=== PATIENT | male | born 1965 | race Two or more races ===

== ENCOUNTER 2020-06-15 15:07 | Observation (INO) | payer OTHER ==
[~2020-06-15] VITALS: Ht 172.7 cm; Wt 72.6 kg
--- NOTE | 2020-06-15 15:59 | NUR ---
ED Nurse Note: PT ARRIVED WITH [facility] 245, FROM [facility]. PT C/O "SI" PT HAS NO PLAN AT THIS TIME. PT STATES THAT HE HAS LEFT LEG PAIN. PT REPOTS HE BROKE HIS LEG THE BEGINNING OF THE MONTH AND HAS A LEG BRACE ONE
[2020-06-15 16:02] VITALS: BP 105/58
[2020-06-15 16:51] LABS: BASOPHILS % (AUTO) 1.1 % (0.0-2.0); EOSINOPHILS % (AUTO) 2.3 % (0.0-3.0); HEMATOCRIT 35.8 % (42.0-52.0); HEMOGLOBIN 11.3 G/DL (14.2-18.0); LYMPHOCYTES % (AUTO) 30.9 % (20.0-45.0); MEAN CORPUSCULAR VOLUME 99 FL (80-99); MONOCYTES % (AUTO) 10.3 % (1.0-10.0); NEUTROPHILS % (AUTO) 55.4 % (45.0-75.0); PLATELET COUNT 106 K/UL (150-450); RED CELL DISTRIBUTION WIDTH 14.4 % (11.6-14.8); WHITE BLOOD COUNT 5.6 K/UL (4.8-10.8)
[2020-06-15 16:55] LABS: ANION GAP 10 mmol/L (5-15); BLOOD UREA NITROGEN 16 mg/dL (7-18); CALCIUM 8.7 MG/DL (8.5-10.1); CARBON DIOXIDE 29 MMOL/L (21-32); CHLORIDE 106 MMOL/L (98-107); CREATININE 0.8 MG/DL (0.55-1.30); POTASSIUM 4.3 MMOL/L (3.5-5.1); SODIUM 145 MMOL/L (136-145)
[2020-06-15 16:59] LABS: ALANINE AMINOTRANSFERASE 33 U/L (12-78); ALBUMIN 3.4 G/DL (3.4-5.0); ALBUMIN/GLOBULIN RATIO 1.1 (1.0-2.7); ALKALINE PHOSPHATASE 121 U/L (46-116); ASPARTATE AMINO TRANSFERASE 29 U/L (15-37); BILIRUBIN,TOTAL 0.6 MG/DL (0.2-1.0)
[2020-06-15 17:30] VITALS: BP 108/71
--- NOTE | 2020-06-15 18:00 | NUR ---
ED Nurse Note: ULTRA SOUND AT BEDSIDE
--- NOTE | 2020-06-15 18:28 | NUR ---
ED Nurse Note: Ultrasound left bedside
--- NOTE | 2020-06-15 18:34 | Emergency Room Report ---
History of Present Illness General Chief Complaint: Behavioral Complaint Present Illness HPI 55 YO male presents to the ED c/o increased pain in the left lower extremity x 1 week. Pt. recently recovering from left tibia fx and has undergone surgery and PT x 1 month. Pt. reports this pain is new onset, and wasn't there before. Pt. denies trauma or fall. He also reports significant increase in depression and is having thoughts of suicide. Pt. denies having a specific plan. He denies PSA's. Pt. reports he takes Wellbutrin and Lexapro which up until recently was managing his depression well. PT. reports he takes ASA daily. He reports having left leg immobilized for part of the day. He states he is still non-weight bearing. Pt. reports edema of the left lower extremity as well. Pt. with hx of liver cirrhosis, thrombocytopenia and dysphagia. Pt. denies illicit drug use. Pt. reports He is homeless and awaiting being able to receive housing assistance. Pt. reports numbness to the dorsum of the left foot which has been chronic since injury. Allergies: Coded Allergies: No Known Allergies (Unverified , 06/15/20) COVID-19 Screening Contact w/high risk pt: No Experienced COVID-19 symptoms?: No COVID-19 Testing performed MANAGER CUSTOMER: No Patient History Past Medical History: other - liver cirrhosis Past Surgical History: other - Left lower extremity orthopedic surgery for tibia fx. Pertinent Family History: none Reviewed Nursing Documentation: PMH: Agreed; PSxH: Agreed Nursing Documentation-PMH Hx Hypertension: Yes History Of Psychiatric Problem: Yes - depression Review of Systems All Other Systems: negative except mentioned in HPI Physical Exam Vital Signs Date Time Temp Pulse Resp B/P (MAP) Pulse Ox O2 Delivery O2 Flow Rate FiO2 06/15/20 15:52 98.2 60 16 105/58 (74) 98 Room Air Sp02 EP Interpretation: reviewed, normal General Appearance: no apparent distress, alert, GCS 15, non-toxic Head: normocephalic, atraumatic Eyes: bilateral eye normal inspection, bilateral eye PERRL ENT: hearing grossly normal, normal voice Neck: full range of motion Respiratory: chest non-tender, lungs clear, normal breath sounds, speaking full sentences Cardiovascular #1: regular rate, rhythm, edema - 2+ left LE Cardiovascular #2: 2+ dorsalis pedis (L) Gastrointestinal: normal bowel sounds, non tender, soft Musculoskeletal: tender - TTP anterior left landeros, there is swelling to the left foot and ankle up to about mid-calf, there are post-op wounds, there is hyperpigmentation of the left lower extremity. , swelling - left lower extremity Neurologic: alert, oriented x3, sensory intact, responsive, speech normal, other - paresthesia to the dorsum of the left foot. Psychiatric: judgement/insight normal, depressed affect - extremely tearful, and talkative Skin: other - Hyperpigmentation to the left lower extremity. Medical Decision Making PA Attestation Dr. Tirado is my supervising Physician whom patient management has been discussed with. Diagnostic Impression: Primary Impression: Intractable pain Additional Impression: Depression Qualified Codes: F32.2 - Major depressive disorder, single episode, severe without psychotic features ER Course 55 YO male presents to the ED c/o increased pain in the left lower extremity x 1 week. Pt. recently recovering from left tibia fx and has undergone surgery and PT x 1 month. Pt. reports this pain is new onset, and wasn't there before. Pt. denies trauma or fall. He also reports significant increase in depression and is having thoughts of suicide. Pt. denies having a specific plan. He denies PSA's. Pt. reports he takes Wellbutrin and Lexapro which up until recently was managing his depression well. PT. reports he takes ASA daily. He reports having left leg immobilized for part of the day. He states he is still non-weight bearing. Pt. reports edema of the left lower extremity as well. Pt. with hx of liver cirrhosis, thrombocytopenia and dysphagia. Pt. denies illicit drug use. Pt. reports He is homeless and awaiting being able to receive housing assistance. Pt. reports numbness to the dorsum of the left foot which has been chronic since injury. Pt is extremely tearful but is very talkative. Ddx considered but are not limited to DVT, Cellulitis, osteomyelitis , neuropathy,SI/HI, psychosis, UTI, intoxication Vital signs: are WNL, pt. is afebrile H&PE are most consistent with behavioral/mental health issue in addition to new onset of pain in a previously immobilized extremity. ORDERS: -CBC, CMP: unremarkable other than non-specific anemia -Salicylates and Acetaminophen - no acute intoxication. -Serum ETOH: WNL- no acute intoxication - UDS: Pending at time of sign out -UA: pending at time of sign out Venous duplex US of the left lower extremity. ED INTERVENTIONS: - MOrphine 4mg IV -Ativan 2 PO -- per Dr. Maldonado psychiatry SIgned out to attending : Dr. Tirado DISPOSITION: at this time pt. will be admitted to Dr. Vaughn for intractable pain and increased depression and psychosis. agreed to admit the pt. and to continue pt. care management. Labs Test 06/15/20 16:15 White Blood Count 5.6 K/UL (4.8-10.8) Red Blood Count 3.60 M/UL (4.70-6.10) Hemoglobin 11.3 G/DL (14.2-18.0) Hematocrit 35.8 % (42.0-52.0) Mean Corpuscular Volume 99 FL (80-99) Mean Corpuscular Hemoglobin 31.3 PG (27.0-31.0) Mean Corpuscular Hemoglobin Concent 31.5 G/DL (32.0-36.0) Red Cell Distribution Width 14.4 % (11.6-14.8) Platelet Count 106 K/UL (150-450) Mean Platelet Volume 9.4 FL (6.5-10.1) Neutrophils (%) (Auto) 55.4 % (45.0-75.0) Lymphocytes (%) (Auto) 30.9 % (20.0-45.0) Monocytes (%) (Auto) 10.3 % (1.0-10.0) Eosinophils (%) (Auto) 2.3 % (0.0-3.0) Basophils (%) (Auto) 1.1 % (0.0-2.0) Sodium Level 145 MMOL/L (136-145) Potassium Level 4.3 MMOL/L (3.5-5.1) Chloride Level 106 MMOL/L (98-107) Carbon Dioxide Level 29 MMOL/L (21-32) Anion Gap 10 mmol/L (5-15) Blood Urea Nitrogen 16 mg/dL (7-18) Creatinine 0.8 MG/DL (0.55-1.30) Estimat Glomerular Filtration Rate > 60 mL/min (>60) Glucose Level 92 MG/DL (74-106) Calcium Level 8.7 MG/DL (8.5-10.1) Total Bilirubin 0.6 MG/DL (0.2-1.0) Aspartate Amino Transf (AST/SGOT) 29 U/L (15-37) Alanine Aminotransferase (ALT/SGPT) 33 U/L (12-78) Alkaline Phosphatase 121 U/L (46-116) Total Protein 6.5 G/DL (6.4-8.2) Albumin 3.4 G/DL (3.4-5.0) Globulin 3.1 g/dL Albumin/Globulin Ratio 1.1 (1.0-2.7) Salicylates Level 1.4 ug/mL (2.8-20) Acetaminophen Level < 2 MCG/ML (10-30) Serum Alcohol < 3 mg/dL Other X-Ray Diagnostic Results Other X-Ray Diagnostic Results : X-Ray ordered: Left Tib/Fib # of Views/Limited Vs Complete: 3 View Indication: Pain EP Interpretation: Yes PA Xray: Interpretation reviewed, by supervising MD, and agrees with findings. Interpretation: no dislocation, no soft tissue swelling, no fractures Impression: Other - surgical hardware. Impression: Distracted fracture fragment and residual fracture line seen. Electronically Signed by: Kinza Velasquez PA-C CT/MRI/US Diagnostic Results CT/MRI/US Diagnostic Results : Imaging Test Ordered: Venous Duplex US Impression " negative for acute DVT". --Per official radiology report- Please see report for specific details. Last Vital Signs Date Time Temp Pulse Resp B/P (MAP) Pulse Ox O2 Delivery O2 Flow Rate FiO2 06/15/20 17:30 98.2 72 15 108/71 99 Room Air Disposition: ADMITTED INPATIENT Condition: Serious Signed Out To: Dr. Tirado Scripts Gabapentin (Neurontin) 300 Mg Capsule 300 MG ORAL THREE TIMES A DAY, #30 CAP Prov: Sean Woodruff M.D. 06/16/20 Lorazepam* (ATIVAN*) 1 Mg Tablet 1 MG ORAL Q4H PRN for 30 Days, TAB Prov: Sean Woodruff M.D. 06/16/20 Mirtazapine* (MIRTAZAPINE*) 15 Mg Tablet 7.5 MG ORAL BEDTIME for 30 Days, TAB Prov: Sean Woodruff M.D. 06/16/20 Escitalopram Oxalate* (LEXAPRO*) 10 Mg Tablet 20 MG ORAL DAILY for 30 Days, TAB Prov: Sean Woodruff M.D. 06/16/20 Buspirone Hcl* (BUSPIRONE HCL*) 5 Mg Tablet 5 MG ORAL THREE TIMES A DAY for 30 Days, TAB Prov: Sean Woodruff M.D. 06/16/20 Bupropion Hcl* (BUPROPION HCL SR*) 150 Mg Tablet.er 150 MG ORAL DAILY for 30 Days, #30 TAB Prov: Sean Woodruff M.D. 06/16/20 Referrals: Gela Vaughn MD (PCP) Kinza Velasquez Jun 15, 2020 18:34
--- NOTE | 2020-06-15 18:59 | NUR ---
ED Nurse Note: xray at bedside
[2020-06-15] MEDS ORDERED: Morphine Sulfate 4mg/ml Inj (IV USE ONLY) IVP ONE (19:00)
--- NOTE | 2020-06-15 19:03 | NUR ---
HAND-OFF: Report given to GREG Alves.
--- NOTE | 2020-06-15 19:05 | NUR ---
ED Nurse Note: Report received from GREG Ramirez. Pt is in room sitting in chair at this time. Pt has steady gait. Pt is aaox4. Pt is in no acute distress. RN monitoring pt and will continue to do so.
--- NOTE | 2020-06-15 19:30 | NUR ---
ED Nurse Note: ERMD bedside. Pt became agitated with ERMD and yelling at staff. Attempted to calm pt and reorient to situation. Pt stating "I am very depressed". Pt initially denied being transferred to [facility] and wants to stay at [facility]. Pt threatening ERMD. ERMD will place pt on medical hold.
[2020-06-15] MEDS ORDERED: LORazepam 1mg tab ORAL ONE (19:45)
[2020-06-15] MEDS ORDERED: 1/2 NS 1000ml IV ONE (19:59)
[2020-06-15 20:55] VITALS: BP 130/76
--- NOTE | 2020-06-15 21:00 | NUR ---
ED Nurse Note: Patient states he does not want to actively kill himself or harm others at this time and that he is very depressed and wants medical help for his leg. Pt has medical boot on L leg. Pt has fair impulse control at this time. Pt aware of admission to [facility]. Vital signs are stable. RN bedside. Will continue to monitor pt. Safety measures in place. Pt provided with blanket for comfort.
--- NOTE | 2020-06-15 21:30 | NUR ---
ED Nurse Note: Unable to obtain CRE/VRE/MRSA swabs. Pt refused at this time.
--- NOTE | 2020-06-15 21:55 | NUR ---
ED Nurse Note: Report given to GREG Munson.
--- NOTE | 2020-06-15 22:00 | NUR ---
ED Nurse Note: Pt is stable for transfer to [facility] unit at this time under observation per ERMD. Pt is aaox4, breathing is normal and unlabored. Pt is calm and not in any acute distress. Pt notes he feels better after receiving ativan PO. Pt taken to unit via wheelchair. Pt took all belongings. Pt own medications locked in ED pt own med box. IV is patent and intact. VSS.
[2020-06-15] MEDS ORDERED: HYDROmorphone 1mg/ml Carpuject IVP PRN (22:15)
[2020-06-15] MEDS ORDERED: Miralax 17gm pkt ORAL PRN (22:15)
[2020-06-15] MEDS ORDERED: LORazepam 1mg tab ORAL PRN (22:15)
[2020-06-15 22:20] VITALS: BP 121/64
--- NOTE | 2020-06-15 22:20 | NUR ---
NURSE NOTES: Patient arrived the unit with sitter. Patient is a/ox4 and c/o pain 8/10 on left leg and will give medication as ordered. No any distress noted at this time. Breathing is even and unlabored on RA. Belonging checked with patient; painter 200 dollars, 4 credit cards and signed by patient. IV site is intact and patent. Skin is intact except Lt leg surgical scars with st/st, edema, redness; patient stated that he had surgery on 05/12/20 for Fx. Bed is on alarm, locked, and lowest position. Call light within reach. Will continue to monitor.
--- NOTE | 2020-06-15 22:21 | History and Physical ---
History of Present Illness General Reason for Hospitalization: Behavioral Complaint Present Illness HPI This is a 55yo M who reported from his SNF which he has been undergoing rehabilitation after a mechanical fall suffering from L distal tib-fib fracture s/p ORIF 05/[address] Lindsey at [facility]. He has a past medical history for compensated etoh cirrhosis (not on diuretics but lactulose), thrombocytopenia, HTN and depression. He reports to the ED for worsening depression and anxiety. He told the ED staff he has suicidal thoughts. He has been more depressed at the SNF despite improvement in rehab. He currently in a left boot and ambulating >50ft. He has followed up with Dr Lindsey without any new concerns. He will see the inpatient Psychiatrist for re evaluation of depression. Allergies: Coded Allergies: No Known Allergies (Unverified , 06/15/20) COVID-19 Screening Contact w/high risk pt: No Experienced COVID-19 symptoms?: No Patient History Healthcare decision maker Resuscitation status Advanced Directive on File Review of Systems Psychiatric: Reports: prior hx, anxiety, depressed feelings, emotional problems Physical Exam General Appearance: WD/WN, no apparent distress Lines, tubes and drains: peripheral HEENT: normocephalic, atraumatic, anicteric, PERRL, EOMI Neck: non-tender, normal alignment Respiratory/Chest: chest wall non-tender, lungs clear, normal breath sounds, no respiratory distress Abdomen: normal bowel sounds, non tender, soft Extremities: normal range of motion, non-tender, no calf tenderness, normal capillary refill, non-pitting, no edema Skin Exam: normal pigmentation, warm/dry, cyanotic Neurologic: 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-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 grossly normal, alert, oriented x 3 Last 24 Hour Vital Signs Date Time Temp Pulse Resp B/P (MAP) Pulse Ox O2 Delivery O2 Flow Rate FiO2 06/15/20 20:55 98.6 55 16 130/76 97 Room Air 06/15/20 17:30 98.2 72 15 108/71 99 Room Air 06/15/20 16:02 60 16 Room Air 06/15/20 16:02 98.2 79 16 105/58 98 Room Air 06/15/20 15:52 98.2 60 16 105/58 (74) 98 Room Air Laboratory Tests Test 06/15/20 16:15 White Blood Count 5.6 K/UL (4.8-10.8) Red Blood Count 3.60 M/UL (4.70-6.10) L Hemoglobin 11.3 G/DL (14.2-18.0) L Hematocrit 35.8 % (42.0-52.0) L Mean Corpuscular Volume 99 FL (80-99) Mean Corpuscular Hemoglobin 31.3 PG (27.0-31.0) H Mean Corpuscular Hemoglobin Concent 31.5 G/DL (32.0-36.0) L Red Cell Distribution Width 14.4 % (11.6-14.8) Platelet Count 106 K/UL (150-450) L Mean Platelet Volume 9.4 FL (6.5-10.1) Neutrophils (%) (Auto) 55.4 % (45.0-75.0) Lymphocytes (%) (Auto) 30.9 % (20.0-45.0) Monocytes (%) (Auto) 10.3 % (1.0-10.0) H Eosinophils (%) (Auto) 2.3 % (0.0-3.0) Basophils (%) (Auto) 1.1 % (0.0-2.0) Sodium Level 145 MMOL/L (136-145) Potassium Level 4.3 MMOL/L (3.5-5.1) Chloride Level 106 MMOL/L (98-107) Carbon Dioxide Level 29 MMOL/L (21-32) Anion Gap 10 mmol/L (5-15) Blood Urea Nitrogen 16 mg/dL (7-18) Creatinine 0.8 MG/DL (0.55-1.30) Estimat Glomerular Filtration Rate > 60 mL/min (>60) Glucose Level 92 MG/DL (74-106) Calcium Level 8.7 MG/DL (8.5-10.1) Total Bilirubin 0.6 MG/DL (0.2-1.0) Aspartate Amino Transf (AST/SGOT) 29 U/L (15-37) Alanine Aminotransferase (ALT/SGPT) 33 U/L (12-78) Alkaline Phosphatase 121 U/L (46-116) H Total Protein 6.5 G/DL (6.4-8.2) Albumin 3.4 G/DL (3.4-5.0) Globulin 3.1 g/dL Albumin/Globulin Ratio 1.1 (1.0-2.7) Salicylates Level 1.4 ug/mL (2.8-20) L Acetaminophen Level < 2 MCG/ML (10-30) L Serum Alcohol < 3 mg/dL Height (Feet): 5 Height (Inches): 8.00 Weight (Pounds): 190 Medications Current Medications Medications (Trade) Dose Ordered Sig/Stan Route PRN Reason Start Time Stop Time Status Last Admin Dose Admin Escitalopram Oxalate (Lexapro) 10 mg DAILY ORAL 06/16/20 09:00 07/16/20 08:59 UNV Lorazepam (Ativan) 1 mg Q6H PRN ORAL For Anxiety 06/15/20 22:15 06/22/20 22:14 UNV Mirtazapine (Remeron) 7.5 mg BEDTIME ORAL 06/16/20 21:00 09/14/20 20:59 UNV Assessment/Plan Problem List: (1) Depression Assessment & Plan: Likely exacerbated by circumstances patient is currently in. + suicidal ideation His LLE is healing appropriately and patient should continue weaning of opiates as tolerated. As for further trauma or increase pain, he denies. ORDERS - Continue home medications, I reviewed with him - Insomnia prn trazodone - Resume pain prescription - Inpatient psych eval ICD Codes: F32.9 - Major depressive disorder, single episode, unspecified SNOMED: 49066568 Qualifiers: Qualified Codes: F32.2 - Major depressive disorder, single episode, severe without psychotic features Celso Eller D.O. Jun 15, 2020 22:20
[2020-06-15] MEDS ORDERED: Enoxaparin 40mg Inj SUBQ SCH (23:15)
[2020-06-16] VITALS: BP 136/73
--- NOTE | 2020-06-16 03:59 | Progress Note ---
DATE: 06/15/2020 The patient was admitted to the hospital due to increased pain in the left lower extremity for 1 week. I sent the patient to ER for evaluation. In the ER, the patient decompensated and the staff called me several times including the ER doctors. The patient started screaming and saying that he wants to kill himself and he is suicidal. He was agitated and complaining of severe pain. Therefore, he was transferred to medical floor. I also ordered medication for him. Leonid Maldonado M.D. DR: LUCY JOB#: [id number] CC:
[2020-06-16 04:00] VITALS: BP 112/68
[2020-06-16 05:39] LABS: BASOPHILS % (AUTO) 0.9 % (0.0-2.0); EOSINOPHILS % (AUTO) 3.6 % (0.0-3.0); HEMATOCRIT 35.5 % (42.0-52.0); HEMOGLOBIN 11.1 G/DL (14.2-18.0); LYMPHOCYTES % (AUTO) 35.4 % (20.0-45.0); MEAN CORPUSCULAR VOLUME 99 FL (80-99); MONOCYTES % (AUTO) 13.3 % (1.0-10.0); NEUTROPHILS % (AUTO) 46.9 % (45.0-75.0); PLATELET COUNT 110 K/UL (150-450); RED CELL DISTRIBUTION WIDTH 13.8 % (11.6-14.8); WHITE BLOOD COUNT 5.1 K/UL (4.8-10.8)
[2020-06-16 05:59] LABS: ANION GAP 3 mmol/L (5-15); BLOOD UREA NITROGEN 18 mg/dL (7-18); CALCIUM 8.7 MG/DL (8.5-10.1); CARBON DIOXIDE 35 MMOL/L (21-32); CHLORIDE 107 MMOL/L (98-107); POTASSIUM 3.6 MMOL/L (3.5-5.1); SODIUM 145 MMOL/L (136-145)
--- NOTE | 2020-06-16 07:40 | NUR ---
NURSE HAND-OFF: Important Events on Shift:[admission] Patient Status: [stable] Diet: [cardiac] Pending Orders: [none] Pending Results/Labs:[none] Pending MD notification:[none] Latest Vital Signs: Temperature 97.7 , Pulse 56 , B/P 112 /68 , Respiratory Rate 18 , O2 SAT 97 , Room Air, O2 Flow Rate . Vital Sign Comment: [stable] Latest Blanchard Fall Score: 30 Fall Risk: Medium Risk Safety Measures: Call light Within Reach, Bed Alarm Zone 2, Side Rails Side Rails x2, Bed position Low and Locked. Fall Precautions: Yellow Socks Door Sign Report given to [fermin rn].
--- NOTE | 2020-06-16 07:45 | NUR ---
NURSE NOTES: Received report from GREG Parrish. Patient asleep in bed in RA. Breathing even and unlabored. No acute distress notes. Sitter at beside. IV site is intact and patent running IVF as ordered. Bed is on alarm, locked, and lowest position. Call light within reach. Will continue to monitor.
[2020-06-16 08:00] VITALS: BP 127/66
[2020-06-16] MEDS: BuPROPion SR 150mg tab ORAL SCH (09:44)
[2020-06-16] MEDS: Docusate 100mg cap ORAL SCH ×2 (09:45→21:27)
[2020-06-16] MEDS: BusPIRone 5mg Tab ORAL SCH ×3 (09:48→17:23)
--- NOTE | 2020-06-16 11:54 | General Progress Note ---
Assessment/Plan Problem List: (1) Intractable pain ICD Codes: R52 - Pain, unspecified SNOMED: 10335259 (2) Depression ICD Codes: F32.9 - Major depressive disorder, single episode, unspecified SNOMED: 06403553 Qualifiers: Qualified Codes: F32.2 - Major depressive disorder, single episode, severe without psychotic features Status: stable Assessment/Plan: This is a 55yo M who reported from his SNF which he has been undergoing rehabilitation after a mechanical fall suffering from L distal tib-fib fracture s/p ORIF 05/[address] Lindsey at [facility]. He has a past medical history for compensated etoh cirrhosis (not on diuretics but lactulose), thrombocytopenia, HTN and depression. He reports to the ED for worsening depression and anxiety. #Depression with SI -Feels better today and no longer has SI per patient -Dr. Maldonado following -Medication management by psych #Left tib-fib Fracture -Miimal pain -PT/OT while in hopital -Pain control #HTN -Continue home meds #ETOH chirosis - compensated -CTM I spent 33 minutes with this patient with 18 min on care coordination and counseling. Discussed with Dr. Maldonado and RNs. Subjective Date patient seen: Jun 16, 2020 Time patient seen: 11:46 ROS Limited/Unobtainable: No Constitutional: Denies: chills, diaphoresis, fever, malaise, weakness HEENT: Denies: eye pain, blurred vision, tearing, double vision, ear discharge , nose pain Cardiovascular: Denies: chest pain, edema, irregular heart rate, lightheadedness, palpitations Respiratory: Denies: cough, shortness of breath, SOB with excertion, SOB at rest Gastrointestinal/Abdominal: Denies: abdomen distended, abdominal pain, black stools, tarry stools, blood in stool, constipated Genitourinary: Denies: discharge, frequency, flank pain, incontinence, pain Neurologic/Psychiatric: Reports: anxiety, depressed, emotional problems; Denies : headache, numbness, pre-existing deficit, tingling Endocrine: Denies: intolerance to cold, intolerance to heat, increased hunger, increased thirst, increased urine Allergies: Coded Allergies: No Known Allergies (Unverified , 06/15/20) Subjective He sates he no longer has SI. Feels better overall. Objective Last 24 Hour Vital Signs Date Time Temp Pulse Resp B/P (MAP) Pulse Ox O2 Delivery O2 Flow Rate FiO2 06/16/20 09:00 Room Air 06/16/20 08:00 97.8 59 18 127/66 (86) 98 06/16/20 04:00 97.7 56 18 112/68 (83) 97 06/16/20 00:00 98.0 51 18 136/73 (94) 99 06/15/20 23:40 Room Air 06/15/20 22:20 97.7 51 18 121/64 (83) 98 06/15/20 22:00 98.6 61 16 134/78 98 Room Air 06/15/20 20:55 98.6 55 16 130/76 97 Room Air 06/15/20 19:32 98.6 06/15/20 17:30 98.2 72 15 108/71 99 Room Air 06/15/20 16:02 60 16 Room Air 06/15/20 16:02 98.2 79 16 105/58 98 Room Air 06/15/20 15:52 98.2 60 16 105/58 (74) 98 Room Air Intake and Output 06/15/20 06/16/20 19:00 07:00 Intake Total 800 ml Output Total 1 ml Balance -1 ml 800 ml Intake Oral 300 ml IV Total 500 ml Output Urine Total 1 ml # Voids 2 Laboratory Tests 06/15/20 16:15: White Blood Count 5.6, Red Blood Count 3.60L, Hemoglobin 11.3L, Hematocrit 35.8L , Mean Corpuscular Volume 99, Mean Corpuscular Hemoglobin 31.3H, Mean Corpuscular Hemoglobin Concent 31.5L, Red Cell Distribution Width 14.4, Platelet Count 106L, Mean Platelet Volume 9.4, Neutrophils (%) (Auto) 55.4, Lymphocytes (%) (Auto) 30.9, Monocytes (%) (Auto) 10.3H, Eosinophils (%) (Auto) 2.3, Basophils (%) (Auto) 1.1, Sodium Level 145, Potassium Level 4.3, Chloride Level 106, Carbon Dioxide Level 29, Anion Gap 10, Blood Urea Nitrogen 16, Creatinine 0.8, Estimat Glomerular Filtration Rate > 60, Glucose Level 92, Calcium Level 8.7, Total Bilirubin 0.6, Aspartate Amino Transf (AST/SGOT) 29, Alanine Aminotransferase (ALT/SGPT) 33, Alkaline Phosphatase 121H, Total Protein 6.5, Albumin 3.4, Globulin 3.1, Albumin/Globulin Ratio 1.1, Salicylates Level 1.4L, Acetaminophen Level < 2L, Serum Alcohol < 3 06/16/20 05:00: White Blood Count 5.1, Red Blood Count 3.60L, Hemoglobin 11.1L, Hematocrit 35.5L , Mean Corpuscular Volume 99, Mean Corpuscular Hemoglobin 30.9, Mean Corpuscular Hemoglobin Concent 31.3L, Red Cell Distribution Width 13.8, Platelet Count 110L, Mean Platelet Volume 7.4, Neutrophils (%) (Auto) 46.9, Lymphocytes (%) (Auto) 35.4, Monocytes (%) (Auto) 13.3H, Eosinophils (%) (Auto) 3.6H, Basophils (%) (Auto) 0.9, Sodium Level 145, Potassium Level 3.6, Chloride Level 107, Carbon Dioxide Level 35H, Anion Gap 3L, Blood Urea Nitrogen 18, Creatinine 1.0, Estimat Glomerular Filtration Rate > 60, Glucose Level 89, Calcium Level 8.7 Height (Feet): 5 Height (Inches): 8.00 Weight (Pounds): 160 General Appearance: WD/WN, no apparent distress, alert, alert oriented x3 EENT: PERRL/EOMI, normal ENT inspection Neck: non-tender, normal alignment, supple Cardiovascular: normal peripheral pulses, normal rate, regular rhythm, no gallop/murmur, no JVD Respiratory/Chest: chest wall non-tender, lungs clear, normal breath sounds, no respiratory distress, no accessory muscle use Abdomen: normal bowel sounds, non tender, soft, no organomegaly, no mass Pelvis: normal external exam Extremities: other - pain for previous leg fracture Edema: no edema noted Arm (L), no edema noted Arm (R), no edema noted Leg (L), no edema noted Leg (R), no edema noted Pedal (L), no edema noted Pedal (R), no edema noted Generalized 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 Jun 16, 2020 11:54
[2020-06-16 12:00] VITALS: BP 123/69
--- NOTE | 2020-06-16 12:43 | NUR ---
WAITER/WAITRESS CABIN CLASS NOTE SW met w/ pt to assess social services counselor concern/needs. Pt has been staying at [facility] post-leg surgery. Pt was staying at [facility] over two weeks prior to his placement at [facility]. Pt presents as A &O4x, hyperverbal and labile. Pt was homeless about 4 1/2 years. 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 Pt has hx of ETOH abuse. Pt has been sober over 10 years and denies other substance/tobacco use. Pt receives GR and food stamp. Pt reports hx of depression and was prescribed Lexapro and Wellbutrin. PT currently denies SI/HI. Pt plans to return to [facility] if possible. Pt uses glasses. PT shares he had difficulty to ambulate. PT to evaluate the mobility.
--- NOTE | 2020-06-16 13:07 | NUR ---
*-* INSURANCE *-* UPDATED CLINICALS AND REVIEWS HAVE BEEN FAXED TO: [facility] AUTH#[id number] SEND CLINICALS TO [facility] P:[phone] F:[phone]
[2020-06-16] MEDS: Albuterol/Ipratropium 3ml neb HHN SCH ×2 (13:13→22:40)
--- NOTE | 2020-06-16 13:52 | NUR ---
CASE MANAGEMENT:INITIAL REVIEW 55YR OLD MALE RHODA FROM [facility] CC:BEHAVIOR COMPLAINTS SI:INTRACTABLE LEG PAIN 98.2 60 16 105/58 98% ON RA PLT 106 ALKP 121 + SALICYLATES + ACETAMINOPHEN <2 IS:IV ATIVAN X1 IV MORPHINE SULFATE X1 IV DILAUDID X1 \: 3E MED SURG UNIT CASE MANAGEMENT: REVIEW 06/16/20 SI:INTRACTABLE LEG PAIN 98.3 66 20 123/69 98% ON RA PLT 110 CO2 35 BUN 3 IS:ALBUTEROL HHN BID NEURONTIN PO TID BUSPAR PO TID IV NS @100ML/HR \: 3E MED SURG UNIT DCP: [facility] WHEN STABLE PLAN: PSYCH CONSULT FEELS BETTER TODAY ~NO SI
--- NOTE | 2020-06-16 15:53 | Diagnostic Imaging Report ---
Indication: Left leg pain Technique: Grayscale and duplex images of the left lower extremity veins Comparison: None Findings: On the left, grayscale and duplex images demonstrate no evidence of intraluminal thrombus. Normal phasic Doppler waveforms, demonstrating normal augmentation response and no evidence of valvular insufficiency. Greater saphenous vein(s) and tibial veins are patent. Normal compressibility. Impression: Negative for evidence of lower extremity deep venous thrombosis on the left
[2020-06-16 16:00] VITALS: BP 138/71
[2020-06-16] MEDS ORDERED: BUSPIRONE HCL5 M1 ORAL (16:32)
[2020-06-16] MEDS ORDERED: LEXAPRO10 MG ORAL (16:32)
[2020-06-16] MEDS ORDERED: ATIVAN1 MG ORAL (16:32)
[2020-06-16] MEDS ORDERED: NEURONTIN300 MG ORAL (16:32)
[2020-06-16] MEDS ORDERED: BUPROPION HCL150 M5 ORAL (16:32)
[2020-06-16] MEDS ORDERED: MIRTAZAPINE15 M3 ORAL (16:32)
--- NOTE | 2020-06-16 17:00 | NUR ---
HAND-OFF: Report given to GREG Dunn.
--- NOTE | 2020-06-16 17:00 | NUR ---
NURSE NOTES: PATIENT RECEIVED FROM CARROL WARD RN. PATIENT AOX4 IN BED HAVING DINNER. QUESTIONS ANSWERED NEEDS MET. DISCUSSED PLAN OF CARE FOR THE REMAINDER OF SHIFT; VERBALIZED UNDERSTANDING. LLE CAM BOOT IN PLACE [facility] WNL. SKIN W/D. BED IN LOW AND LOCKED POSITION WITH CALL LIGHT WITHIN ARM'S REACH.
--- NOTE | 2020-06-16 17:35 | Diagnostic Imaging Report ---
Indication: Pain Technique: 2 views of the left tibia and fibula Comparison: Findings: Surgical hardware seen reducing a comminuted fracture of the distal fibula. There appear to be some old screw holes. Some of the fracture fragments remain distracted and some of the fracture line is visualized. The hardware is intact. There is also surgical hardware reducing old healed left fibular fracture Impression: Distracted fracture fragment and residual fracture line seen involving surgically repaired distal tibial fracture. Uncertain as to whether this represents baseline postoperative appearance, versus recent fracture, versus acute reinjury. Doubt the latter, given intact appearance of the hardware and apparent appropriate relationship with the remainder the of bones.
--- NOTE | 2020-06-16 19:16 | Neurology Progress Note ---
Interim History Interim History ROS Limited/Unobtainable: No Interim History 55yo M who reported from his SNF which he has been undergoing rehabilitation after a mechanical fall suffering from L distal tib-fib fracture s/p ORIF 05/[address] Lindsey at [facility]. He has a past medical history for compensated etoh cirrhosis (not on diuretics but lactulose), thrombocytopenia, HTN and depression. He reports to the ED for worsening depression and anxiety. He told the ED staff he has suicidal thoughts. He has been more depressed at the SNF despite improvement in rehab. He currently in a left boot and ambulating >50ft. He has followed up with Dr Lindsey without any new concerns. He will see the inpatient Psychiatrist for re evaluation of depression. Objective Physical Exam Last Vital Signs Date Time Temp Pulse Resp B/P (MAP) Pulse Ox O2 Delivery O2 Flow Rate FiO2 06/16/20 17:56 98.0 06/16/20 16:00 50 20 138/71 (93) 98 06/16/20 09:00 Room Air Laboratory Tests Test 06/16/20 05:00 White Blood Count 5.1 K/UL (4.8-10.8) Red Blood Count 3.60 M/UL (4.70-6.10) L Hemoglobin 11.1 G/DL (14.2-18.0) L Hematocrit 35.5 % (42.0-52.0) L Mean Corpuscular Volume 99 FL (80-99) Mean Corpuscular Hemoglobin 30.9 PG (27.0-31.0) Mean Corpuscular Hemoglobin Concent 31.3 G/DL (32.0-36.0) L Red Cell Distribution Width 13.8 % (11.6-14.8) Platelet Count 110 K/UL (150-450) L Mean Platelet Volume 7.4 FL (6.5-10.1) Neutrophils (%) (Auto) 46.9 % (45.0-75.0) Lymphocytes (%) (Auto) 35.4 % (20.0-45.0) Monocytes (%) (Auto) 13.3 % (1.0-10.0) H Eosinophils (%) (Auto) 3.6 % (0.0-3.0) H Basophils (%) (Auto) 0.9 % (0.0-2.0) Sodium Level 145 MMOL/L (136-145) Potassium Level 3.6 MMOL/L (3.5-5.1) Chloride Level 107 MMOL/L (98-107) Carbon Dioxide Level 35 MMOL/L (21-32) H Anion Gap 3 mmol/L (5-15) L Blood Urea Nitrogen 18 mg/dL (7-18) Creatinine 1.0 MG/DL (0.55-1.30) Estimat Glomerular Filtration Rate > 60 mL/min (>60) Glucose Level 89 MG/DL (74-106) Calcium Level 8.7 MG/DL (8.5-10.1) Neurologic Exam Mental Status: oriented x4 Speech: normal speech Language: normal language Objective non focal exam Impression/Recommendations Status: stable Diagnostic Impression sp fall + suicidal ideation Has capacity depression pain control prn trazodone psych hold cont gabapentin 300 mg tid Hemal Weiss MD Jun 16, 2020 19:16
--- NOTE | 2020-06-16 19:26 | NUR ---
NURSE NOTES: Pt is in the room awake and verbal. No acute distress noted. Room air. Pt s ambulatory, pt goes in and out of bathroom with a steady gait. Pt steri strips on his left leg from previous tibia fibula surgery, incisions well approximated, healing, some scabs present, pt is wearing a protective boot. Pt has a discharge order for SNF, case management is working towards placement. Pt is instructed to call for assistance as needed. Pt will be monitored. Bed locked low in position,side rails up and call light within reach.
--- NOTE | 2020-06-16 19:39 | NUR ---
NURSE HAND-OFF: Important Events on Shift:NONE Patient Status: STABLE Diet: CARDIAC Pending Orders: NONE Pending Results/Labs:NONE Pending MD notification:NONE Latest Vital Signs: Temperature 98.0 , Pulse 50 , B/P 138 /71 , Respiratory Rate 20 , O2 SAT 98 , Room Air, O2 Flow Rate . Vital Sign Comment: N/A Latest Blanchard Fall Score: 30 Fall Risk: Medium Risk Safety Measures: Call light Within Reach, Bed Alarm Zone 2, Side Rails Side Rails x2, Bed position Low and Locked. Fall Precautions: Yellow Socks Door Sign Report given to SERGIO BROWN RN.
--- NOTE | 2020-06-16 19:45 | NUR ---
NURSE NOTES: Per previous shift nurse GREG Song , [facility] is not accepting the patient back. Case management to find SNF placement.
[2020-06-16 20:00] VITALS: BP 123/73
[2020-06-16] MEDS: LORazepam 1mg tab ORAL PRN (21:28)
--- NOTE | 2020-06-16 23:03 | Consultation ---
History of Present Illness General Date patient seen: Jun 15, 2020 Chief Complaint: Behavioral Complaint Referring physician: abigail Present Illness HPI 5yo M who reported from his SNF which he has been undergoing rehabilitation after a mechanical fall suffering from L distal tib-fib fracture s/p ORIF 05/[address] Lindsey at [facility]. He has a past medical history for compensated etoh cirrhosis (not on diuretics but lactulose), thrombocytopenia, HTN and depression. He reports to the ED for worsening depression and anxiety. He told the ED staff he has suicidal thoughts. He has been more depressed at the SNF despite improvement in rehab. He currently in a left boot and ambulating >50ft. He has followed up with Dr Lindsey without any new concerns. He will see the inpatient Psychiatrist for re evaluation of depression. Allergies: Coded Allergies: No Known Allergies (Unverified , 06/15/20) Medication History Scheduled Bupropion Hcl* (Bupropion Hcl Sr*), 150 MG ORAL DAILY Buspirone Hcl* (Buspirone Hcl*), 5 MG ORAL THREE TIMES A DAY Escitalopram Oxalate* (Lexapro*), 20 MG ORAL DAILY Gabapentin (Neurontin), 300 MG ORAL THREE TIMES A DAY Mirtazapine* (Mirtazapine*), 7.5 MG ORAL BEDTIME Scheduled PRN Lorazepam* (Ativan*), 1 MG ORAL Q4H PRN Patient History Healthcare decision maker Resuscitation status Advanced Directive on File Physical Exam Last 24 Hour Vital Signs Date Time Temp Pulse Resp B/P (MAP) Pulse Ox O2 Delivery O2 Flow Rate FiO2 06/16/20 20:00 97.9 51 20 123/73 (90) 97 06/16/20 17:56 98.0 06/16/20 16:00 98.0 50 20 138/71 (93) 98 06/16/20 12:00 98.3 66 20 123/69 (87) 98 06/16/20 09:00 Room Air 06/16/20 08:00 97.8 59 18 127/66 (86) 98 06/16/20 04:00 97.7 56 18 112/68 (83) 97 06/16/20 00:00 98.0 51 18 136/73 (94) 99 06/15/20 23:40 Room Air Intake and Output 06/15/20 06/16/20 19:00 07:00 Intake Total 800 ml Output Total 1 ml Balance -1 ml 800 ml Intake Oral 300 ml IV Total 500 ml Output Urine Total 1 ml # Voids 2 Laboratory Tests Test 06/16/20 05:00 White Blood Count 5.1 K/UL (4.8-10.8) Red Blood Count 3.60 M/UL (4.70-6.10) L Hemoglobin 11.1 G/DL (14.2-18.0) L Hematocrit 35.5 % (42.0-52.0) L Mean Corpuscular Volume 99 FL (80-99) Mean Corpuscular Hemoglobin 30.9 PG (27.0-31.0) Mean Corpuscular Hemoglobin Concent 31.3 G/DL (32.0-36.0) L Red Cell Distribution Width 13.8 % (11.6-14.8) Platelet Count 110 K/UL (150-450) L Mean Platelet Volume 7.4 FL (6.5-10.1) Neutrophils (%) (Auto) 46.9 % (45.0-75.0) Lymphocytes (%) (Auto) 35.4 % (20.0-45.0) Monocytes (%) (Auto) 13.3 % (1.0-10.0) H Eosinophils (%) (Auto) 3.6 % (0.0-3.0) H Basophils (%) (Auto) 0.9 % (0.0-2.0) Sodium Level 145 MMOL/L (136-145) Potassium Level 3.6 MMOL/L (3.5-5.1) Chloride Level 107 MMOL/L (98-107) Carbon Dioxide Level 35 MMOL/L (21-32) H Anion Gap 3 mmol/L (5-15) L Blood Urea Nitrogen 18 mg/dL (7-18) Creatinine 1.0 MG/DL (0.55-1.30) Estimat Glomerular Filtration Rate > 60 mL/min (>60) Glucose Level 89 MG/DL (74-106) Calcium Level 8.7 MG/DL (8.5-10.1) Microbiology Date/Time Source Procedure Growth Status 06/16/20 04:10 Rectum Received Height (Feet): 5 Height (Inches): 8.00 Weight (Pounds): 160 Medications Current Medications Medications (Trade) Dose Ordered Sig/Stan Route PRN Reason Start Time Stop Time Status Last Admin Dose Admin Acetaminophen (Tylenol) 650 mg Q4H PRN ORAL Mild Pain (Pain Scale 1-3) 06/15/20 22:15 07/15/20 22:14 Albuterol/ Ipratropium (Albuterol/ Ipratropium) 3 ml Q12HRT HHN 06/16/20 10:00 06/21/20 09:59 06/16/20 13:13 Aspirin (ASA) 325 mg DAILY ORAL 06/16/20 09:00 07/31/20 08:59 06/16/20 09:45 Bupropion HCl (Wellbutrin SR) 150 mg DAILY ORAL 06/16/20 09:00 07/16/20 08:59 06/16/20 09:44 Buspirone HCl (Buspar) 5 mg THREE TIMES A DAY ORAL 06/16/20 09:00 09/14/20 08:59 06/16/20 17:23 Dextrose (Dextrose 50%) 25 ml Q30M PRN IV Hypoglycemia 06/15/20 22:15 09/13/20 22:14 Dextrose (Dextrose 50%) 50 ml Q30M PRN IV Hypoglycemia 06/15/20 22:15 09/13/20 22:14 Diphenhydramine HCl (Benadryl) 25 mg Q6H PRN ORAL Itching/Pruritis 06/15/20 22:15 07/15/20 22:14 Docusate Sodium (Colace) 100 mg EVERY 12 HOURS ORAL 06/16/20 09:00 07/16/20 08:59 06/16/20 21:27 Escitalopram Oxalate (Lexapro) 20 mg DAILY ORAL 06/16/20 09:00 07/16/20 08:59 06/16/20 09:48 Famotidine (Pepcid) 40 mg DAILY ORAL 06/16/20 09:00 09/14/20 08:59 06/16/20 09:50 Gabapentin (Neurontin) 300 mg THREE TIMES A DAY ORAL 06/16/20 09:00 07/16/20 08:59 06/16/20 17:24 Lorazepam (Ativan) 1 mg Q4H PRN ORAL For Lesser Anxiety 06/15/20 22:15 06/22/20 22:14 06/16/20 21:28 Mirtazapine (Remeron) 7.5 mg BEDTIME ORAL 06/16/20 21:00 09/14/20 20:59 06/16/20 21:27 Ondansetron HCl (Zofran) 4 mg Q6H PRN IVP Nausea & Vomiting 06/15/20 22:15 07/15/20 22:14 Oxycodone/ Acetaminophen (Percocet 10/325) 1 tab Q4H PRN ORAL Moderate Pain (Pain Scale 4-6) 06/16/20 00:15 06/23/20 00:14 06/16/20 21:28 Polyethylene Glycol (Miralax) 17 gm HSPRN PRN ORAL Constipation 06/15/20 22:15 07/15/20 22:14 Sodium Chloride 1,000 ml @ 100 mls/hr Q10H IV 06/15/20 22:30 07/15/20 22:29 06/16/20 17:24 Assessment/Plan Problem List: (1) Depression ICD Codes: F32.9 - Major depressive disorder, single episode, unspecified SNOMED: 53554848 Qualifiers: Qualified Codes: F32.2 - Major depressive disorder, single episode, severe without psychotic features (2) Intractable pain ICD Codes: R52 - Pain, unspecified SNOMED: 32838318 Assessment/Plan: sp fall + suicidal ideation Has capacity depression pain control prn trazodone psych hold gabapentin 300 mg tid Hemal Weiss MD Jun 16, 2020 23:03
--- NOTE | 2020-06-17 01:15 | Consultation ---
DATE OF CONSULTATION: 06/16/2020 CONSULTING PHYSICIAN: Leonid Maldonado MD. HISTORY OF PRESENT ILLNESS: Patient is in bed. No acute distress noted. Patient is a 55-year-old male with a history of PTSD, depression, borderline personality who has been admitted to the hospital. Patient endorsed suicidal ideation, was sent to the hospital for intractable pain. Upon evaluation, patient is not endorsing any suicidal or homicidal ideation. Patient is in bed, would like to return to [facility]. He is not endorsing suicidal or homicidal ideation continues to be suicidal. PAST PSYCHIATRIC HISTORY: PTSD and [facility] prescribes his medication. He is reluctant to change any psychotropic medication. PAST MEDICAL HISTORY: He is status post foot surgery and stays at [facility]. ALLERGIES: No known drug allergies. SUBSTANCE ABUSE HISTORY: No known history of illicit drug use or alcohol. MENTAL STATUS EXAMINATION: Patient is alert, oriented times self, place, situation. Mood is neutral. Affect is full range, congruent with mood. Thought process is linear and goal oriented. Thought content, no suicidal or homicidal ideation. Cognition is intact. Insight and judgment is fair. ASSESSMENT: [place] I Major depressive disorder. PTSD. [place] II Deferred. [place] III Foot pain. [place] IV Moderate. [place] V 50. PLAN: We will discharge the patient back to [facility]. I discussed with the charge nurse as well as the nurseTerrell to discharge the patient tonight back to [facility]. Leonid Maldonado M.D. DR: MONE JOB#: [id number] CC: EDGAR
--- NOTE | 2020-06-17 03:31 | NUR ---
NURSE HAND-OFF: Important Events on Shift:[Pt has active discharge order for SNF, awaiting SNF placement] Patient Status: [Stable] Diet: [Cardiac diet] Pending Orders: [Discharge] Pending Results/Labs:[] Pending MD notification:[] Latest Vital Signs: Temperature 97.9 , Pulse 51 , B/P 123 /73 , Respiratory Rate 20 , O2 SAT 98 , Room Air, O2 Flow Rate . Vital Sign Comment: [] Latest Blanchard Fall Score: 30 Fall Risk: Medium Risk Safety Measures: Call light Within Reach, Bed Alarm Zone 2, Side Rails Side Rails x2, Bed position Low and Locked. Fall Precautions: Yellow Socks Door Sign Report given to [GREG Muñiz].
[2020-06-17 04:00] VITALS: BP 126/64
--- NOTE | 2020-06-17 06:27 | NUR ---
NURSE HAND-OFF: Important Events on Shift: none except for refused AM labs Patient Status: stable Diet: cardiac Pending Orders: AM labs Pending Results/Labs:yes Pending MD notification: none Latest Vital Signs: Temperature 97.8 , Pulse 50 , B/P 126 /64 , Respiratory Rate 16 , O2 SAT 98 , Room Air, O2 Flow Rate . Vital Sign Comment: stable; afebrile Latest Blanchard Fall Score: 30 Fall Risk: Medium Risk Safety Measures: Call light Within Reach, Bed Alarm Zone 2, Side Rails Side Rails x2, Bed position Low and Locked. Fall Precautions: yes Yellow Socks: no Door Sign: yes Report given to Anabell.
--- NOTE | 2020-06-17 07:30 | NUR ---
NURSE NOTES: RECEIVED PATIENT A/A/OX4 IN BED IN A SITTING POSITION. STERI STRIPS PLACED ON LEFT LOWER EXTREMITY AND WITH CAM BOOT INPLACED. ABLE TO MAKE NEEDS KNOWN. REFUSED TO EAT BREAKFAST. OFFERED SOMETHING ELSE AND STATED THAT HE DOES NOT EAT FAKE EGGS. PATIENT ON IVF INFUSING WELL ON RFA PATENT AND INTACT. NO ACUTE RESP DISTRESS NOTED. KEPT BED IN THE LOWEST POSITION. SIDERAILS ARE UPX2. CALL LIGHT IS WITHIN EASY REACH. BED BRAKES AND LOCK ACTIVATED. WILL CONT TO MONITOR.
[2020-06-17 08:00] VITALS: BP 143/72
[2020-06-17 08:02] LABS: BASOPHILS % (AUTO) 1.2 % (0.0-2.0); EOSINOPHILS % (AUTO) 3.9 % (0.0-3.0); HEMATOCRIT 37.3 % (42.0-52.0); LYMPHOCYTES % (AUTO) 39.1 % (20.0-45.0); MEAN CORPUSCULAR VOLUME 98 FL (80-99); MONOCYTES % (AUTO) 11.2 % (1.0-10.0); NEUTROPHILS % (AUTO) 44.6 % (45.0-75.0); PLATELET COUNT 120 K/UL (150-450); RED BLOOD COUNT 3.81 M/UL (4.70-6.10); RED CELL DISTRIBUTION WIDTH 14.5 % (11.6-14.8); WHITE BLOOD COUNT 5.2 K/UL (4.8-10.8)
[2020-06-17] MEDS: BuPROPion SR 150mg tab ORAL SCH (08:04)
[2020-06-17] MEDS: BusPIRone 5mg Tab ORAL SCH ×3 (08:04→17:15)
[2020-06-17] MEDS: Docusate 100mg cap ORAL SCH (08:04)
[2020-06-17 08:29] LABS: % IRON SATURATION 20 % (15-50); IRON 44 ug/dL (50-175); TOTAL IRON BINDING CAPACITY 215 ug/dL (250-450)
[2020-06-17] MEDS: Albuterol/Ipratropium 3ml neb HHN SCH (10:53)
--- NOTE | 2020-06-17 11:39 | Discharge Summary ---
Discharge Summary Hospital Course Date of Admission Jun 15, 2020 at 19:58 Date of Discharge 06/17/20 Admitting Diagnosis INTERACTABLE LEG PAIN HPI Jhonathan Diaz is a 55 year old male who was admitted on Jun 15, 2020 at 19:58 for Intractable Leg Pain This is a 55yo M who reported from his SNF which he has been undergoing rehabilitation after a mechanical fall suffering from L distal tib-fib fracture s/p ORIF 05/[address] Lindsey at [facility]. He has a past medical history for compensated etoh cirrhosis (not on diuretics but lactulose), thrombocytopenia, HTN and depression. He reports to the ED for worsening depression and anxiety. He told the ED staff he has suicidal thoughts. He has been more depressed at the SNF despite improvement in rehab. He currently in a left boot and ambulating >50ft. He has followed up with Dr Lindsey without any new concerns. He will see the inpatient Psychiatrist for re evaluation of depression. Consultations Psych Dr. Maldonado Neurolgy Dr. Rosenberg Hospital Course This is a 55yo M who reported from his SNF which he has been undergoing rehabilitation after a mechanical fall suffering from L distal tib-fib fracture s/p ORIF 05/[address] Lindsey at [facility]. He has a past medical history for compensated etoh cirrhosis (not on diuretics but lactulose), thrombocytopenia, HTN and depression. He reports to the ED for worsening depression and anxiety. #Depression with SI -Feels better today and no longer has SI per patient -Dr. Maldonado celared for DC 06/16 -Medication management by psych #Left tib-fib Fracture -Minmal pain -[facility] #HTN -Continue home meds #ETOH chirosis - compensated -CTM I spent 39 minutes with this patient with 19 min on care coordination and counseling. Discussed with Dr. Maldonado and RNs. DC planning to SNF difficult due to insurance and patient difficulty. Discharge Condition Upon Discharge: stable Discharge Vital Signs Last Vital Signs Date Time Temp Pulse Resp B/P (MAP) Pulse Ox O2 Delivery O2 Flow Rate FiO2 06/17/20 10:56 60 18 100 Room Air 21 57 16 100 06/17/20 08:35 97.8 06/17/20 08:00 143/72 (95) Discharge Disposition Patient was discharged to SNF Discharge Diagnoses: (1) Suicidal ideations (2) Depression (3) Intractable pain Sean Woodruff M.D. Jun 17, 2020 11:39
[2020-06-17 12:03] VITALS: BP 138/71
--- NOTE | 2020-06-17 13:41 | NUR ---
CASE MANAGEMENT: REVIEW 06/17/20 SI:INTRACTABLE LEG PAIN 98.5 72 21 138/71 98% ON RA PLT 120 CO2 35 IRON 44 TIBC 215 IS:IV NS @100ML/HR ALBUTEROL HHN BID NEURONTIN PO TID BUSPAR PO TID ASA PO QD \: 3E MED SURG UNIT PLAN: PLACEMENT SEEKING
--- NOTE | 2020-06-17 13:47 | NUR ---
*-* INSURANCE *-* UPDATED CLINICALS AND REVIEWS HAVE BEEN FAXED TO: [facility] AUTH#[id number] SEND CLINICALS TO [facility] P:[phone] F:[phone]
[2020-06-17] MEDS: LORazepam 1mg tab ORAL PRN (14:21)
--- NOTE | 2020-06-17 14:25 | NUR ---
NURSE NOTES: patient appeared anxious and asked for ativan. administered orally. patient repeatedly asking for his discharge disposition. Had asked to speak with the Franca CLEMENTS. will cont the plan of care.
[2020-06-17 16:00] VITALS: BP 112/68
--- NOTE | 2020-06-17 16:00 | NUR ---
SCRUBBER SYSTEM ATTENDANT NOTE SW met w/ pt to discuss DC planning. PT reports he has some income left for this month. However, pt declined to be referred to board and care, or independent living facilities. Pt reports he does not like to share space with other people. Pt agreed to be referred to [facility]. Pt reports he attempted to reach his rifle case repairer at [facility] but she is in training. JEET spoke w/ Abner from [facility] [phone] #[phone] stating that there is no bed available at this time. PT was recently at one of the [facility] sites. Abner to call back this JEET if there is an alternative housing for this pt. Addendum: 06/17/20 at 1603 by ELIUD MARCANO This SW witnessed pt walking in his room. Addendum: 06/17/20 at 1658 by ELIUD MARCANO This SW did not receive a call from Abner. This SW is unable to reach Abner directly as the hotline assigns the sales representative consultant randomly.
--- NOTE | 2020-06-17 16:08 | NUR ---
NURSE NOTES: SPOKE WITH TYREE ANN REGARDING DISCHARGE MATTER. AZUL REGAN REFUSED TO ACCEPT THE PATIENT BACK. ACCDG TO HER BUSINESS CONTINUITY CONSULTANT WILL BE PRESENT AND DISCUSS TO THE PATIENT OPTIONS WHERE PATIENT COULD BE DISCHARGED. AWAITS FOR THE BUSINESS CONTINUITY CONSULTANT TO SPEAK TO THE PATIENT. WILL CONT TO MONITOR.
--- NOTE | 2020-06-17 16:49 | NUR ---
BUNDLE PERSON NOTE SW spoke w/ pt and informed that there is no bed available at [facility]. Pt refuses to go to Per pt, his uncle is currently stating at [facility] that he will attempt to contact his uncle. Pt does not consider skilled nursing placement. PT declined this SW to contact his uncle and did not provide any contact information. Pt reports his car is parked on [address] and plans to rock picker his car upon DC. Pt did not share the exact location/address. Pt declined to receive community resource packet and the list of emergency shelters. Tap card will be provided as needed. Pt to be discharged to his preferred location.
--- NOTE | 2020-06-17 16:59 | NUR ---
NURSE NOTES: CALLED AND SPOKE WITH DR BARRERA REGARDING DISCHARGE ORDER. DUE TO PATIENT REFUSAL TO GO TO ASSISTED OR RECUPERATIVE CARE. HE PREFERS TO GO TO HIS CAR PER CULINARY INSTRUCTOR STATEMENT. INSTRUCTED TO CALL DR WALTON TO GET CLEARANCE SINCE PATIENT HAS SUICIDAL IDEATION. LEFT VOICEMESSAGE TO DR WALTON AND AWAITING FOR A CALL BACK. WILL CONT TO MONITOR.
--- NOTE | 2020-06-17 17:11 | NUR ---
Discharge planning patient referred to Rachael t:[phone] f:[phone] [place] johanna t:[phone] f:[phone] Rodrigo honeycutt t:[phone] f:[phone] Reilly aguilera [phone] Addendum: 06/17/20 at 1717 by THOMAS REDDY LVN Patient has been denied d/t behavior
--- NOTE | 2020-06-17 17:20 | NUR ---
MANAGER OF HUMAN RESOURCES NOTE SW had a conference call w/ pt's ortho doctor from [facility] and pt and discussed discharge planning. SW discussed limited placement options d/t pt's funding and behavioral issue. During the call, pt stated that he will go to shared housing i.e independent living facility. After the conference call, SW met w/ pt to clarify the dc planning that he does not want to spend his income on housing. Thus, he declined to be referred to independent living facility. SW provided the list of emergency shelters and local shelters. PT expressed he plans to go to a halfway in [facility]. SW provided the maps to [facility] and [facility]. SW explained that pt will need to walk-in and that a bed cannot be reserved. SW encouraged to pt to F/U w/ his case work aide at [facility]. Pt verbalized understanding. Pt to be discharged to his preferred halfway/location.
--- NOTE | 2020-06-17 18:14 | NUR ---
NURSE NOTES: PATIENT WAS PROVIDED A LIST FROM SALES REPRESENTATIVE CONSULTANT. PATIENT WILL BE GOING TO [address] [place] [address] VIA [employer]. ZOE BERMUDEZ REVIEWED AND NOTED. REMOVED IV ACCESS. DISCHARGE INSTRUCTIONS GIVEN. OWN MEDICATIONS GIVEN. CONSUMED 100% DINNER. AWAITING FOR A CALL FROM A CAB. WILL CONT THE PLAN OF CARE. Addendum: 06/17/20 at 1832 by FABRICE TORRES LVN DISCHARGE TO THE ADDRESS PROVIDED ABOVE. IN STABLE CONDITION
--- NOTE | 2020-06-17 19:31 | NUR ---
NURSE NOTES: RECEIVED A CALL FROM [facility] AND SPOKE WITH KACEY. HAD EXPLAINED TO KACEY THE CONVERSATION THAT WAS TAKEN BETWEEN HIM AND THE CLINICAL RESEARCH DIRECTOR ELIUD. KACEY'S ADVICE WAS TO CALL THE PATIENT @ [phone]. I HAVE ASKED FOR THE NUMBER OF KACEY BUT REFUSED TO PROVIDE IT. HOWEVER, KACEY IS MUCH AWARE OF THE DOCUMENTATION STATED ON THE CLINICAL RESEARCH DIRECTOR NOTED.
--- NOTE | 2020-06-17 21:54 | Neurology Progress Note ---
Interim History Interim History ROS Limited/Unobtainable: No Interim History feels better Objective Physical Exam Last Vital Signs Date Time Temp Pulse Resp B/P (MAP) Pulse Ox O2 Delivery O2 Flow Rate FiO2 06/17/20 16:00 97.7 65 20 112/68 (83) 97 06/17/20 10:56 Room Air 21 Laboratory Tests Test 06/17/20 07:40 White Blood Count 5.2 K/UL (4.8-10.8) Red Blood Count 3.81 M/UL (4.70-6.10) L Hemoglobin 12.0 G/DL (14.2-18.0) L Hematocrit 37.3 % (42.0-52.0) L Mean Corpuscular Volume 98 FL (80-99) Mean Corpuscular Hemoglobin 31.4 PG (27.0-31.0) H Mean Corpuscular Hemoglobin Concent 32.1 G/DL (32.0-36.0) Red Cell Distribution Width 14.5 % (11.6-14.8) Platelet Count 120 K/UL (150-450) L Mean Platelet Volume 8.6 FL (6.5-10.1) Neutrophils (%) (Auto) 44.6 % (45.0-75.0) L Lymphocytes (%) (Auto) 39.1 % (20.0-45.0) Monocytes (%) (Auto) 11.2 % (1.0-10.0) H Eosinophils (%) (Auto) 3.9 % (0.0-3.0) H Basophils (%) (Auto) 1.2 % (0.0-2.0) Iron Level 44 ug/dL (50-175) L Total Iron Binding Capacity 215 ug/dL (250-450) L Percent Iron Saturation 20 % (15-50) Unsaturated Iron Binding 171 ug/dL (112-346) Neurologic Exam Mental Status: oriented x4 Speech: normal speech Language: normal language Objective non focal exam Impression/Recommendations Problems: (1) Depression (2) Intractable pain Status: stable Diagnostic Impression sp fall + suicidal ideation Has capacity depression pain control prn trazodone psych hold cont gabapentin 300 mg tid Hemal Weiss MD Jun 17, 2020 21:54
--- NOTE | 2020-06-18 23:46 | Psych Consult Progress Note ---
Psychiatry Progress Note Psychiatry Progress Note Medications i dictated a note yesterday however it was not transcribe due to hospital changing the policy the pt was not suicidal or homocidal the pt is not meeting the criteria for sniff the pt has borderline personality and is threatening the pt has poor insight the pt is easily agitated the pt can be discharged Neurological/Psychiatric: Reports: anxiety, depressed, emotional problems; Denies: headache, numbness, pre-existing deficit, tingling Allergies: Coded Allergies: No Known Allergies (Unverified , 06/15/20) Objective Data Height (Feet): 5 Height (Inches): 8.00 Weight (Pounds): 160 General Appearance: WD/WN, no apparent distress, alert, alert oriented x3 Assessment/Plan Status: stable Leonid Maldonado MD Jun 18, 2020 23:46
== END 2020-06-17 18:21 | disposition home or self-care (01) ==
LOC: EDBD 15:07 → EMR 16:00 → 3E 19:58 → EDBEDREQ 21:07
DX: M79.662 Pain in left lower leg (principal); F32.2 Major depressive disorder, single episode, severe without psychotic features; R45.851 Suicidal ideations; K70.30 Alcoholic cirrhosis of liver without ascites; I10 Essential (primary) hypertension; Z87.81 Personal history of (healed) traumatic fracture; R52 Pain, unspecified; F41.9 Anxiety disorder, unspecified
CPT/HCPCS: 36415; 73590; 80048; 80053; 83540; 83550; 85025; 87081; 93971; 94640; 96374; G0480; G0481; J1170; J2270; Z7502; Z7514; 99284; G0378; J7620